=== PATIENT | female | born 1965 | race American Indian/Alaskan Native ===

== ENCOUNTER 2018-02-05 14:41 | Observation (INO) | payer BC ==
--- NOTE | 2018-02-05 15:46 | ED PDOC ---
Arrival/HPI <Reyna Manuel - Last Filed: 02/05/18 19:19> - General Historian: Patient <Moiz London - Last Filed: 02/05/18 19:38> - General Time Seen by Provider: 02/05/18 15:43 - History of Present Illness Narrative History of Present Illness (Text): 02/05/18 15:43 52 y/o female, no pmh, nkda, doesn't wear contacts and no eye surgical history, c/o rt. eye blurry vision x 3 days with an episode of headache yesterday with no fall or trauma. Pt. stated that she had rt. eye blurry vision about 3 days ago while driving, acute onset, no pain, no curtain falling down, no slurring speech/numbness/tingling, no palpitation or chest pain, been having right eye blurry vision change for the past 3 days. Pt. stated that she had an episode of short episode of headache yesterday, no chest pain or shortness of breath, no numbness or tingling, no palpitation, no night sweat, no dizziness, no dysphagia, no other medical or psychological complaints. Pt. has no headache today, only complaining about rt. eye blurry vision. (Moiz London) Past Medical History - Provider Review Nursing Documentation Reviewed: Yes <Moiz London - Last Filed: 02/05/18 19:38> Family/Social History - Physician Review Nursing Documentation Reviewed: Yes Family/Social History: Unknown Family HX <Moiz London - Last Filed: 02/05/18 19:38> Allergies/Home Meds <Reyna Manuel - Last Filed: 02/05/18 19:19> <Moiz London - Last Filed: 02/05/18 19:38> Allergies/Adverse Reactions: Allergies No Known Allergies Allergy (Verified 02/05/18 15:47) Review of Systems - Review of Systems Constitutional: absent: Fatigue, Fevers Eyes: Vision Changes ENT: absent: Hearing Changes Respiratory: absent: SOB, Cough Cardiovascular: absent: Chest Pain Gastrointestinal: absent: Abdominal Pain, Nausea, Vomiting Musculoskeletal: absent: Arthralgias, Back Pain Skin: absent: Rash, Pruritis, Skin Lesions Neurological: Headache. absent: Dizziness, Focal Weakness Endocrine: absent: Diaphoresis Psychiatric: absent: Anxiety, Depression, Suicidal Ideation <Moiz London Q - Last Filed: 02/05/18 19:38> Physical Exam Vital Signs Reviewed: Yes Temperature: Afebrile Pulse: Regular Respiratory Rate: Normal Appearance: Positive for: Well-Appearing, Non-Toxic, Comfortable Pain Distress: None Mental Status: Positive for: Alert and Oriented X 3 - Systems Exam Head: Present: Atraumatic, Normocephalic, Other (no temporal artery tenderness, no jaw claudication. ). No: Tenderness, Contusion, Swelling, Ecchymosis, Abrasion, Laceration Pupils: Present: PERRL, Other (Eyes: rt. eye w/o correction 20/400 vs. left eye w/o correction 20/25, bilateral vision w/correction 20/70, rt. eye intraocular pressure 18 vs. lt. eye intraocular pressure 18 as well, FREOM without limitation, no nystagms, no papilledema, unable to see the eye chart when held closed to her 4-12 inches) Extroacular Muscles: Present: EOMI Conjunctiva: Present: Normal Ears: Present: NORMAL TM, Normal Canal. No: Erythema Mouth: Present: Moist Mucous Membranes Pharnyx: No: ERYTHEMA, EXUDATE, TONSILS ENLARGED Nose (External): Present: Atraumatic. No: Abrasion, Contusion, Laceration Nose (Internal): Present: Normal Inspection, No Active Bleeding. No: Rhinorrhea , Septal Hematoma, Epistaxis Neck: Present: Normal Range of Motion, Trachea Midline. No: MIDLINE TENDERNESS , Paraspinal Tenderness, Lymphadenopathy Respiratory/Chest: Present: Clear to Auscultation, Good Air Exchange. No: Respiratory Distress, Accessory Muscle Use Cardiovascular: Present: Regular Rate and Rhythm, Normal S1, S2. No: Murmurs Abdomen: No: Tenderness, Distention, Peritoneal Signs Back: Present: Normal Inspection Upper Extremity: Present: Normal Inspection. No: Cyanosis, Edema Lower Extremity: Present: Normal Inspection. No: Edema Neurological: Present: GCS=15, CN II-XII Intact, Speech Normal, Motor Func Grossly Intact, Gait Normal, Memory Normal, Other (no drift, normal finger to nose test, normal heel to mckeon test. ) Skin: Present: Warm, Dry, Normal Color. No: Rashes Psychiatric: Present: Alert, Oriented x 3, Normal Insight, Normal Concentration <Moiz London - Last Filed: 02/05/18 19:38> Vital Signs Temp Pulse Resp BP Pulse Ox 02/05/18 17:32 84 18 126/91 H 100 02/05/18 16:03 98.4 F 88 18 145/97 H 97 Medical Decision Making <MarcydeloresReyna Anika - Last Filed: 02/05/18 19:19> - Lab Interpretations I have reviewed the lab results: Yes - RAD Interpretation Customer Service Agent: Radiologist - EKG Interpretation Interpreted by ED Physician: Yes Type: 12 lead EKG Comparison: Com.w/previous EKG <Moiz London - Last Filed: 02/05/18 19:38> ED Course and Treatment: 02/05/18 19:[address] Lilly, who is aware and agrees with emergency department management plan in requesting to admit patient to telemetry for further observation and biomedical instrument technician was consulted for evaluation. Patient Seen With Resident: In agreement with resident note which contains more details about the patient. Patient was seen and evaluated with resident. Came up with plan and treatment together. (Reyna Manuel) 02/05/18 15:50 Differential: ICH vs. Ischemia vs. Intracranial Tumor vs. retinal vessel occlusion -Labs/ua -CT head -IVF -Client Resource Specialist -will contact opthalmologist once CT head resulted. -Observe and reassess 02/05/18 17:59 -NIHH is One -Urine hcg is negative -EKG: Sinus Tachycardia @ 101 BPM, no ST elevation or depression, no T wave inversion -CT head: No acute intracranial abnormalities. No significant findings to account for the clinical presentation. -Chest xray show: no active disease -Labs show no acute findings except K+ 5.4 (kayexalate 15gm po ordered, ekg show no tall T waves), Lactate dehydrogenase 1177 (non-specific) -Cardiac enzyme is negative -UA show +leukocyte, +wbc, +yeast, diflucan 150mg po once and rocephine 1gm IV ordered -Paging opthalmologist oncall Dr. Carter for consult -Aspirin 325mg po ordered 02/05/18 18:40 -I spoke to DR. Carter about this case, no emergent intervention indicated at this time, will consult on this case -Paging medicine oncall for admission about this case for admission -Case discussed with Dr. Manuel, she agreed on the plan of care. -I am clinically concerning about the central cause of this blurry vision including but not limited to possible ischemia changes to the [employer]. 02/05/18 19:01 -I spoke to Dr. Lilly, discussed about the case, request to add drug screen/pt/ ptt, agreed to admit to his service and request to call his resident, paged the resident already. Dr. Manuel also spoke to Dr. lilly as well about this case. 02/05/18 19:38 -I spoke to the biomedical instrument technician, DR. Lisandro Chambers, discussed about the case/ labs/radiology result, agreed on following up the pending labs/radiology result. (Moiz London) - Lab Interpretations Lab Results: 02/05/18 16:50 02/05/18 16:50 Lab Results 02/05/18 16:50: WBC 8.9, RBC 5.04, Hgb 13.0, Hct 40.5, MCV 80.4, MCH 25.8, MCHC 32.1, RDW 15.7 H, Plt Count 270, MPV 8.9, Gran % 57.0, Lymph % (Auto) 36.3 H, [place] % (Auto) 5.6, Eos % (Auto) 0.9 L, Baso % (Auto) 0.2, Gran # 5.06, Lymph # ( Auto) 3.2, [place] # (Auto) 0.5, Eos # (Auto) 0.1, Baso # (Auto) 0.02 02/05/18 16:50: Sodium 142, Potassium 5.4 H, Chloride 104, Carbon Dioxide 28, Anion Gap 17, BUN 17, Creatinine 0.6 L, Est GFR ( Amer) > 60, Est GFR ( Non-Af Amer) > 60, Random Glucose 95, Calcium 9.3, Magnesium 2.0, Total Bilirubin 1.4 H, AST 67 H, ALT 40, Alkaline Phosphatase 92, Lactate Dehydrogenase 1177 H, Total Creatine Kinase 148, Troponin I < 0.01, Total Protein 8.9 H, Albumin 4.7, Globulin 4.2, Albumin/Globulin Ratio 1.1 02/05/18 16:20: Urine Color Yellow, Urine Appearance Clear, Urine pH 6.0, Ur Specific [place] 1.025, Urine Protein Trace H, Urine Glucose (UA) Negative, Urine Ketones Negative, Urine Blood Trace-intact H, Urine Nitrate Negative, Urine Bilirubin Negative, Urine Urobilinogen 0.2, Ur Leukocyte Esterase Trace H , Urine RBC 2 - 5, Urine WBC 5 - 10, Ur Epithelial Cells 6 - 8, Amorphous Sediment Few, Urine Bacteria Many, Urine Other Uyeast - RAD Interpretation Radiology Orders: 02/05/18 15:56 HEAD W/O CONTRAST [CT] Stat 02/05/18 16:00 CHEST PORTABLE [RAD] Stat Chest xray: HISTORY: medical clearance COMPARISON: No prior. FINDINGS: LUNGS: No active pulmonary disease. PLEURA: No significant pleural effusion identified, no pneumothorax apparent. CARDIOVASCULAR: No radiographic findings to suggest acute or significant cardiovascular disease. OSSEOUS STRUCTURES: No significant abnormalities. VISUALIZED UPPER ABDOMEN: Normal. OTHER FINDINGS: None. IMPRESSION: No active disease. CT head: FINDINGS: HEMORRHAGE: No intracranial hemorrhage. BRAIN: No mass effect or edema. No atrophy or chronic microvascular ischemic changes. VENTRICLES: Unremarkable. No hydrocephalus. CALVARIUM: Unremarkable. PARANASAL SINUSES: Unremarkable as visualized. No significant inflammatory changes. MASTOID AIR CELLS: Unremarkable as visualized. No inflammatory changes. OTHER FINDINGS: None. IMPRESSION: No acute intracranial abnormalities. No significant findings to account for the clinical presentation. (Moiz London) - EKG Interpretation EKG Interpretation (Text): 02/05/18 16:24 Sinus Tachycardia @ 101 BPM, no ST elevation or depression, no T wave inversion (Moiz London) - Medication Orders Current Medication Orders: Discontinued Medications Aspirin (Aspirin) 325 mg PO STAT STA Stop: 02/05/18 17:54 Last Admin: 02/05/18 19:15 Dose: 325 mg Fluconazole (Diflucan) 150 mg PO STAT STA PRN Reason: Protocol Stop: 02/05/18 17:02 Last Admin: 02/05/18 17:51 Dose: 150 mg Ceftriaxone Sodium (Rocephin 1 Gram Ivpb) 1 gm in 100 mls @ 200 mls/hr IVPB STAT STA PRN Reason: Protocol Stop: 02/05/18 17:30 Last Admin: 02/05/18 17:51 Dose: 200 mls/hr eMAR Start Stop Document 02/05/18 17:51 [place] (Rec: 02/05/18 17:51 [place] [id number] Intravenous Solution Start Date 02/05/18 Start Time 17:51 Sodium Polystyrene Sulfonate (Kayexalate Susp) 15 gm PO STAT STA Stop: 02/05/18 17:56 Last Admin: 02/05/18 19:15 Dose: 15 gm NIHSS Scale ([place]) Time Performed: 18:00 - How Severe is the Stoke Baseline Level of Consciousness: 0=Alert LOC to Questions: 0=Both comments correct LOC to commands: 0=Obeys both correctly Best Gaze: 0=Normal Visual: 1=Partial hemianopia Facial: 0=Normal Motor Arm - Left: 0=No drift Motor Arm - Right: 0=No drift Motor Leg - Left: 0=No drift Motor Leg - Right: 0=No drift Limb Ataxia: 0=Absent Sensory: 0=Normal Best Language: 0=No aphasia Dysarthia: 0=Normal articulation Extinction & Inattention (Neglect): 0=Normal, no object Score: 1 Risk Level: Minor Stroke Risk <Moiz London Q - Last Filed: 02/05/18 19:38> rTPA Inclusion/Exclusion - Refusal of Treatment Patient Refused Treatment: No - Inclusion Criteria for Altepase Patient is 18 years or Older: Yes The Clinical Diagnosis of Ischemic Stroke That is Causing a Potentially Disabling Neurological Deficit: No Time of Onset is Well Established to be Less Than 270 Minute Before Treatment Would Begin: No Risk/Benefit Discussed With Patient/Family Member Present: Yes - Exclusion Criteria for Altepase Uncontrolled Hypertension at Time of Treatment (Systolic BP above 185 or Diastolic BP above 110 mmHg): No Active Internal Bleeding: No Known Bleeding Diathesis Including but Not Limited to: Platelets Below 100,000/ mm,PTT Above 40 sec After Heparin Use, Current Use of Oral Anitcoagulant With INR Greater Than 1.7 or PT Greater Than 15 secs: No Evidence of an Intracranial Hemorrhage: No Evidence of Major Acute Infarct With Signs Greater Than 1/3 MCA Territory: No Suspicion of Subarachnoid Hemorrhage on Pretreatment Evaluation Even if CT Head Negative For Hemorrhage: No - Warning to TPA With Conditions Following Conditions Weighed Against Anticipated Benefit: Yes Condition: Stroke Serevity Too Mild <Moiz London - Last Filed: 02/05/18 19:38> - PA / DRIVING SCHOOL INSTRUCTOR / Resident Statement / has reviewed & agrees with the documentation as recorded. / has examined the patient and agrees with the treatment plan. - Scribe Statement The provider has reviewed the documentation as recorded by the Scribe <Reyna Manuel - Last Filed: 02/05/18 19:19> - PA / DRIVING SCHOOL INSTRUCTOR / Resident Statement / has reviewed & agrees with the documentation as recorded. <Moiz London - Last Filed: 02/05/18 19:38> - Scribe Statement Laverne Egan All medical record entries made by the Scribe were at my direction and personally dictated by me. I have reviewed the chart and agree that the record accurately reflects my personal performance of the history, physical exam, medical decision making, and the department course for this patient. I have also personally directed, reviewed, and agree with the discharge instructions and disposition. (Reyna Manuel) Disposition/Present on Arrival <Reyna Manuel - Last Filed: 02/05/18 19:19> - Present on Arrival Any Indicators Present on Arrival: No History of DVT/PE: No History of Uncontrolled Diabetes: No Urinary Catheter: No History of Decub. Ulcer: No - Disposition Have Diagnosis and Disposition been Completed?: Yes Disposition Time: 18:01 Patient Plan: Admission, Observation, Telemetry <Moiz London - Last Filed: 02/05/18 19:38> - Disposition Diagnosis: Candidiasis, UTI (urinary tract infection), Blurry vision, right eye, Hyperkalemia, Headache Disposition: HOSPITALIZED Patient Problems: Current Active Problems Problem Status Onset Candidiasis Acute UTI (urinary tract infection) Acute Blurry vision, right eye Acute Hyperkalemia Acute Headache Acute Condition: STABLE
[2018-02-05 16:40] LABS: URINE BILIRUBIN NEGATIVE (NEGATIVE); URINE BLOOD TRACE-INTACT (NEGATIVE); URINE GLUCOSE (UA) NEGATIVE (NEGATIVE); URINE LEUKOCYTE ESTERASE TRACE Leu/uL (NEGATIVE); URINE PROTEIN TRACE mg/dL (<30 mg/dL); URINE UROBILINOGEN 0.2 E.U./dL (<1 E.U./dL)
[2018-02-05 16:49] LABS: URINE APPEARANCE CLEAR (CLEAR); URINE COLOR YELLOW (YELLOW)
[2018-02-05 17:00] LABS: URINE AMORPHOUS SEDIMENT FEW; URINE BACTERIA MANY (NEG)
[2018-02-05] MEDS ORDERED: cefTRIAXone 1 gm 1 GM/100 ML BAG IVPB STA (17:01)
[2018-02-05 17:17] LABS: BASO # 0.02 K/mm3 (0.0-2.0); BASO % 0.2 % (0.0-3.0); EOS # 0.1 (0.0-0.7); EOS % 0.9 % (1.5-5.0); GRAN # 5.06 (1.4-6.5); LYMPH # 3.2 (1.2-3.4); LYMPH % 36.3 % (22.0-35.0); MEAN CELL VOLUME 80.4 fl (80.0-105.0); MEAN CORPUSCULAR HEMOGLOBIN 25.8 pg (25.0-35.0); MEAN CORPUSCULAR HGB CONC 32.1 g/dl (31.0-37.0); MEAN PLATELET VOLUME 8.9 fl (7.0-11.0); MONO # 0.5 (0.1-0.6); MONO % 5.6 % (1.0-6.0); RBC 5.04 10^6/uL (3.5-6.1); RED CELL DISTRIBUTION WIDTH 15.7 % (11.5-14.5); WHITE BLOOD COUNT 8.9 10^3/ul (4.5-11.0)
[2018-02-05 17:21] LABS: CALCIUM 9.3 mg/dL (8.4-10.5); GFR AFRICAN-AMERICAN > 60; GFR NON-AFRICAN AMERICAN > 60
[2018-02-05 17:24] LABS: ALB/GLOB RATIO 1.1 (1.1-1.8); ALBUMIN 4.7 g/dL (3.0-4.8); ALT/SGPT 40 U/L (7-56); AST/SGOT 67 U/L (14-36); BLOOD UREA NITROGEN 17 mg/dL (7-21)
[2018-02-05 17:35] LABS: TROPONIN I < 0.01 ng/mL
--- NOTE | 2018-02-05 17:46 | RAD ---
Date of service: 02/05/2018 HISTORY: medical clearance COMPARISON: No prior. FINDINGS: LUNGS: No active pulmonary disease. PLEURA: No significant pleural effusion identified, no pneumothorax apparent. CARDIOVASCULAR: No radiographic findings to suggest acute or significant cardiovascular disease. OSSEOUS STRUCTURES: No significant abnormalities. VISUALIZED UPPER ABDOMEN: Normal. OTHER FINDINGS: None. IMPRESSION: No active disease.
--- NOTE | 2018-02-05 17:48 | CT ---
Date of service: 02/05/2018 PROCEDURE: CT HEAD WITHOUT CONTRAST. HISTORY: rt. eye blurry vision, vision change x 3 days. COMPARISON: None available. TECHNIQUE: Axial computed tomography images were obtained through the head/brain without intravenous contrast. Coronal and sagittal reconstructed images. Radiation dose: Total exam DLP = 836.55 mGy-cm. This CT exam was performed using one or more of the following dose reduction techniques: Automated exposure control, adjustment of the mA and/or kV according to patient size, and/or use of iterative reconstruction technique. FINDINGS: HEMORRHAGE: No intracranial hemorrhage. BRAIN: No mass effect or edema. No atrophy or chronic microvascular ischemic changes. VENTRICLES: Unremarkable. No hydrocephalus. CALVARIUM: Unremarkable. PARANASAL SINUSES: Unremarkable as visualized. No significant inflammatory changes. MASTOID AIR CELLS: Unremarkable as visualized. No inflammatory changes. OTHER FINDINGS: None. IMPRESSION: No acute intracranial abnormalities. No significant findings to account for the clinical presentation.
[2018-02-05] MEDS ORDERED: Sod Polystyrene Sulf 15 gm/60 ml Susp PO STA (17:55)
--- NOTE | 2018-02-05 19:09 | CARD ---
APPROVED REPORT Date of service: 02/05/2018 EKG Measurement Heart [id number] OR [id number] <Conclusion> Sinus tachycardia Possible Left atrial enlargement Left ventricular hypertrophy Abnormal ECG
[2018-02-05 19:40] LABS: INR 1.03; PARTIAL THROMBOPLASTIN TIME 28.7 Seconds (25.1-36.5); PROTHROMBIN TIME 11.7 SECONDS (9.4-12.5)
--- NOTE | 2018-02-05 21:15 | CP.PCM.HP ---
<Ahmet Castanon - Last Filed: 02/05/18 21:24> History of Present Illness - History of Present Illness History of Present Illness: Ahmet Castanon D.O PGY-1, H & P note for Dr. Lentz CC: Right blurry vision HPI: Patient is a 52 yo female with no PMH presenting with blurry vision of the right eye. Patient states that the blurry vision started 3 days ago, she was not doing anything at that time. She states that the blurry vision is only in the right eye. She denies loss of vision, loss of visual becerra, trauma to the eye, contact lens use, or previous eye surgeries. Patient has been using Visine eye drops but did not help with the blurry vision. Patient denies headaches, dizziness, muscle weakness, dysarthria, chest pain, SOB, abdominal pain, or urinary symptoms. Denies fever, chills, chest pain, constipation, and urinary symptoms 12 point ROS negative except as indicated in HPI Past medical history: denies Surgical History: thumb surgery 4 years ago Allergies: NKDA Social History: Denies alchol, tobacco, and drug use. Family History: Mother- asthma Medications:none PMD: none Present on Admission - Present on Admission Any Indicators Present on Admission: No History of DVT/PE: No History of Uncontrolled Diabetes: No Urinary Catheter: No Decubitus Ulcer Present: No Past Patient History - Past Social History Smoking Status: Never Smoked - PSYCHIATRIC Hx Substance Use: No - SURGICAL HISTORY Hx Surgeries: No - ANESTHESIA Hx Anesthesia: No Hx Anesthesia Reactions: No Hx Malignant Hyperthermia: No Meds Allergies/Adverse Reactions: Allergies Allergy/AdvReac Type Severity Reaction Status Date / Time No Known Allergies Allergy Verified 02/05/18 15:47 Physical Exam - Constitutional Appears: Well, No Acute Distress - Head Exam Head Exam: ATRAUMATIC, NORMAL INSPECTION - Eye Exam Eye Exam: EOMI, Normal appearance, PERRL. absent: Conjunctival injection, Scleral icterus Pupil Exam: NORMAL ACCOMODATION - ENT Exam ENT Exam: Mucous Membranes Moist - Neck Exam Neck exam: Positive for: Normal Inspection - Respiratory Exam Respiratory Exam: Clear to Auscultation Bilateral. absent: Rales, Rhonchi, Wheezes - Cardiovascular Exam Cardiovascular Exam: REGULAR RHYTHM, +S1, +S2. absent: Gallop, Rubs, Systolic Murmur - GI/Abdominal Exam GI & Abdominal Exam: Normal Bowel Sounds, Soft. absent: Tenderness Additional comments: Patient is obese - Extremities Exam Extremities exam: Positive for: normal inspection. Negative for: calf tenderness, pedal edema - Neurological Exam Neurological exam: Alert, CN II-XII Intact, Oriented x3 Additional comments: Muscle strength 5/5 bilaterally in upper and lower extremities. Sensation intact in all extremities. - Psychiatric Exam Psychiatric exam: Normal Affect, Normal Mood - Skin Skin Exam: Dry, Intact, Warm Results - Vital Signs Recent Vital Signs: Last Vital Signs Temp 98.3 F 02/05/18 20:43 Pulse 90 02/05/18 20:43 Resp 18 02/05/18 20:43 BP 118/72 02/05/18 20:43 Pulse Ox 100 02/05/18 20:43 - Labs Result Diagrams: 02/05/18 16:50 02/05/18 16:50 Assessment & Plan - Assessment and Plan (Free Text) Assessment: Patient is a 52 yo female with no PMH presenting with blurry vision of the right eye Plan: Blurry vision of the right eye - Need to rule out CVA - Head CT: No acute disease, no intracranial hemorrhage - Brain MRI with and without contrast ordered - Brain MRA with contrast ordered - EKG: Sinus tachycardia @ 101 - CXR: no active disease - UDS ordered - HIV and Hepatitis panel ordered - CPK, troponin, lipid panel, TSH, T3, Free T4 ordered - Urine culture pending - Neurology consulted, Dr. Boston - Cardiology consulted, Dr. Menendez - Opthalmology consulted, Dr. Carter - Started ASA 81mg - Abdomen US ordered - Carotid duplex ordered - Echocardiogram ordered - Speech and swallow eval - PT eval GI/DVT prophylaxis: Lovenox and protonix Patient case reviewed with and plan approved by attending physician, Dr. Lentz. - Date & Time Date: 02/05/18 Time: 21:24 <Trung Lentz - Last Filed: 02/08/18 17:30> Results - Vital Signs Recent Vital Signs: Last Vital Signs Temp 98.6 F 02/07/18 16:37 Pulse 76 02/07/18 16:37 Resp 20 02/07/18 16:37 BP 177/96 H 02/07/18 16:37 Pulse Ox 98 08/15/18 16:37 - Labs Result Diagrams: 02/07/18 06:00 02/07/18 06:00 Attending/Attestation - Attestation I have personally seen and examined this patient.: Yes I have fully participated in the care of the patient.: Yes I have reviewed all pertinent clinical information: Yes Notes (Text): Please see/read my dictated notes.
[2018-02-05] MEDS: Enoxaparin 30 mg Syringe SC SCH (22:40)
[2018-02-05 23:04] VITALS: RESP 20; BMI 54.9
[2018-02-06] MEDS: Pantoprazole 40 mg EC Tab PO SCH (05:16)
[2018-02-06 06:45] LABS: HDL CHOLESTEROL 43 mg/dL (29-60)
[2018-02-06 06:57] LABS: LDL CHOLESTEROL 43 mg/dL (0-129)
[2018-02-06 06:58] LABS: TROPONIN I < 0.01 ng/mL
[2018-02-06 07:31] LABS: FREE T4 1.3 ng/dL (0.78-2.19)
[2018-02-06 07:44] LABS: T3 1.39 ng/mL (0.97-1.69)
[2018-02-06 07:50] LABS: ALB/GLOB RATIO 1.1 (1.1-1.8); ALBUMIN 3.8 g/dL (3.0-4.8); ALT/SGPT 44 U/L (7-56); AST/SGOT 33 U/L (14-36); BILIRUBIN,DIRECT 0.2 mg/dL (0.0-0.4); BLOOD UREA NITROGEN 19 mg/dL (7-21); CALCIUM 8.8 mg/dL (8.4-10.5); GFR AFRICAN-AMERICAN > 60; GFR NON-AFRICAN AMERICAN > 60
[2018-02-06 09:02] LABS: BASO # 0.02 K/mm3 (0.0-2.0); BASO % 0.2 % (0.0-3.0); EOS # 0.1 (0.0-0.7); EOS % 1.5 % (1.5-5.0); GRAN # 4.99 (1.4-6.5); GRAN % 51.9 % (50.0-68.0); HEMOGLOBIN 12.3 g/dL (12.0-16.0); LYMPH # 3.9 (1.2-3.4); LYMPH % 40.6 % (22.0-35.0); MEAN CELL VOLUME 80.7 fl (80.0-105.0); MEAN CORPUSCULAR HEMOGLOBIN 25.3 pg (25.0-35.0); MEAN CORPUSCULAR HGB CONC 31.4 g/dl (31.0-37.0); MEAN PLATELET VOLUME 8.7 fl (7.0-11.0); MONO # 0.6 (0.1-0.6); MONO % 5.8 % (1.0-6.0); RBC 4.86 10^6/uL (3.5-6.1); RED CELL DISTRIBUTION WIDTH 15.8 % (11.5-14.5); WHITE BLOOD COUNT 9.6 10^3/ul (4.5-11.0)
[2018-02-06] MEDS: Enoxaparin 30 mg Syringe SC SCH ×2 (10:14→21:24)
[2018-02-06] MEDS: POLYETHYLENE GLYCOL 3350 17 GM/Dose PACKET PO SCH ×2 (10:18→21:23)
--- NOTE | 2018-02-06 10:57 | US ---
PROCEDURE: Bilateral carotid artery duplex ultrasound HISTORY: Carotid stenosis CVA PHYSICIAN(S): Carlos Arboleda MD. TECHNIQUE: Duplex sonography and color-flow Doppler were used to evaluate the carotid bifurcations and limited segments of the vertebral arteries bilaterally. FINDINGS: The exam is limited by body habitus and tortuous vessels There is mild smooth heterogeneous plaque noted at the carotid bifurcations bilaterally. The peak systolic velocity in the proximal right internal carotid artery is 108 cm/sec. This corresponds to a 20 to 39% proximal right ICA stenosis. Normal systolic velocities are noted in the proximal right external carotid artery. There is antegrade flow in the right vertebral artery. The peak systolic velocity in the proximal left internal carotid artery is 75 cm/sec. This corresponds to a 20 to 39% proximal left ICA stenosis. Normal systolic velocities are noted in the proximal left external carotid artery. There is antegrade flow in the left vertebral artery. IMPRESSION: 1. Bilateral 20-39% proximal ICA stenoses. 2. Antegrade flow in both vertebral arteries.
--- NOTE | 2018-02-06 12:14 | US ---
Date of service: 02/06/2018 HISTORY: hepatosplenomegaly COMPARISON: None. TECHNIQUE: Sonographic evaluation of the abdomen. FINDINGS: LIVER: Measures 26.8 cm. Diffusely increased echogenicity of the liver parenchyma. Consistent with fatty infiltration of the liver. Smooth contour. No mass. No biliary ductal dilatation. GALLBLADDER: Unremarkable. No gallstones. COMMON BILE DUCT: Measures 5 mm. No stones. No dilatation. PANCREAS: Unremarkable as visualized. No mass. No ductal dilatation. RIGHT KIDNEY: Measures 9.4cm. Normal echogenicity. No calculus, mass, or hydronephrosis. LEFT KIDNEY: Measures 9.4cm. Normal echogenicity. No calculus, mass, or hydronephrosis. SPLEEN: Measures 9.2 cm in length. AORTA: No focal mass. IVC: Unremarkable. OTHER FINDINGS: None. IMPRESSION: Hepatomegaly with diffuse fatty infiltration of the liver. No splenomegaly. No evidence of cholelithiasis.
--- NOTE | 2018-02-06 12:41 | CON ---
Copied To: Carlos Menendez MD Attending MD: Carlos Menendez MD DATE: 02/06/2018 CARDIOLOGY CONSULTATION HISTORY OF PRESENT ILLNESS: The patient is a 52-year-old woman who presents with blurry vision which is persistent. No chest pain, no shortness of breath. PAST MEDICAL HISTORY: The patient's past medical history is free of cardiac disease. No hypertension, no diabetes mellitus. MEDICATIONS: The patient currently is not on any medications at home. SOCIAL HISTORY: The patient denies smoking. REVIEW OF SYSTEMS: A 14-point review of systems is reviewed in detail. No cardiac symptomatology noted. PHYSICAL EXAMINATION: VITAL SIGNS: Blood pressure varies from 131 to 142, heart rates in the 70s, normal sinus rhythm. NECK: Negative JVD. LUNGS: Without rales. HEART: S1, S2. EXTREMITIES: Without edema. LABORATORY DATA AND IMAGING: EKG shows normal sinus rhythm and is unremarkable. Troponins are negative x2. Glucose is 133. The hemoglobin is 12.3. IMPRESSION: 1. Persistent blurry vision, which may be related to a neurologic or ophthalmologic issue. 2. Morbid obesity. 3. Diabetes mellitus. 4. Hypertension. PLAN: Given these findings, there is no evidence for acute cardiac issues at this time. An echocardiogram has been ordered and we will review. We will DC telemetry today. Carlos Menendez MD
[2018-02-06 13:01] LABS: HEPATITIS B SURFACE AG Negative (NEGATIVE)
[2018-02-06 13:06] LABS: HEPATITIS A IGM NEGATIVE (NEGATIVE); HEPATITIS B CORE AB NEGATIVE (NEGATIVE)
[2018-02-06 13:18] LABS: HEPATITIS C ANTIBODY NEGATIVE (NEGATIVE)
--- NOTE | 2018-02-06 17:55 | CON ---
Copied To: Winston Boston MD Attending MD: Winston Boston MD DATE: 02/06/2018 NEUROLOGY CONSULT CHIEF COMPLAINT: Right blurry vision. HISTORY OF PRESENT ILLNESS: A 52-year-old woman with no significant past medical history. Came in with acute onset of right blurry vision and transient mild double vision as well as haziness in the right eye right side of the quadrant. Left eye is intact. No headache. No change in sense of taste or smell. She said the patient has been using Visine eye drops, but did not help the blurry vision. No neck pain. Carotid Doppler showed 20-39% proximal ICA stenosis and antegrade flow in the vertebral arteries. CAT scan of the head showed acute intracranial abnormality. She had got MRI and MRA of the head with and without contrast is currently pending as well as an Ophthalmology consult. No focal motor weakness. PAST MEDICAL HISTORY: As above. SOCIAL HISTORY: No illicit drug use, smoking or EtOH abuse. REVIEW OF SYSTEMS: Fourteen-point review of systems is negative except as per the HPI. FAMILY HISTORY: Noncontributory. MEDICATIONS: Reviewed by nurses' reconciliation sheet. LABORATORY DATA: Sodium is 143, potassium 4.5, chloride 105, carbon dioxide 28, BUN of 19, creatinine 0.7, random glucose of 105, vitamin D is less than 12.8. PHYSICAL EXAMINATION: VITAL SIGNS: Temperature of 98.3, pulse rate of 83, blood pressure 115/60, respiratory rate of 20, oxygen saturation 96% by room air. GENERAL: The patient is sitting up in bed, in no acute distress. HEENT: Atraumatic, normocephalic. PERRLA. Extraocular muscles intact. NECK: Supple. No JVD, no adenopathy noted. LUNGS: Clear to auscultation. No adventitious sounds. HEART: S1, S2. Normal rate and rhythm. No murmurs, rubs or gallops. ABDOMEN: Soft, nontender and nondistended. Bowel sounds are present. EXTREMITIES: No clubbing. No cyanosis. Peripheral pulses 2+ felt bilaterally. NEUROLOGIC: The patient is alert and oriented to person, place, month and year. Speech is fluent without any errors. Cranial nerves II through XII intact. Does have some decreased visual acuity in the right eye when compared to the left and possibly has a small right visual field cut on the right quadrant. Motor exam: Moves all extremities equally. No pronator drift seen. Sensory exam: Light touch, pinprick, proprioception and vibration are intact. DTRs are 2+ throughout. Coordination: [id number]-nl-[id number] intact. No dysmetria noted. Gait is deferred for now. ASSESSMENT AND PLAN: This is a 52-year-old woman with no significant past medical history, presented with acute onset of blurry vision of the right eye, which with the carotid Doppler showing 20-39% proximal internal carotid artery stenosis, antegrade flow of the vertebral arteries. CAT scan of the head showed no acute intracranial abnormality. At this time, the right eye blurry vision is painless and unlikely optic neuritis, but we will get an MRI of the brain and MRI of the head to see if any acute intracranial abnormalities causing the symptoms versus focal retinal issue where we will need an ophthalmology consult. At this time, currently tests are pending. Continue with current present medical management. Aspirin 81 mg p.o. daily. Thank you for this consult. Winston Boston MD
[2018-02-06] MEDS: Cefepime 1gm in NS 100ml 1 GM/100 ML BAG IVPB SCH (23:05)
[2018-02-06 23:59] LABS: BARBITURATES, UR NEGATIVE (NEGATIVE); BENZODIAZEPINES, UR NEGATIVE (NEGATIVE); OPIATES, UR NEGATIVE (NEGATIVE); PHENCYCLIDINE, UR NEGATIVE (NEGATIVE)
--- NOTE | 2018-02-07 00:24 | PN ---
Copied To: Trung Lentz MD Attending MD: Trung Lentz MD DATE: 02/06/2018 SUBJECTIVE: The patient is seen in room 268, bed 1. The patient was seen lying in the bed. The patient is comfortable. Overnight nurse's notes were reviewed. The patient was seen by speech therapist. No deficits were found. PHYSICAL EXAMINATION: VITAL SIGNS: T-max is 98.3; telemetry shows sinus rhythm, heart rate 77, 83, 72; blood pressure is 131/86, 136/94, 142/92, 142/93; respirations 20, O2 sat 96%. Telemetry monitoring shows sinus rhythm. HEENT: The patient's head examination normocephalic. HEENT examination shows pink conjunctivae. Anicteric sclerae. No oropharyngeal lesion. No neck rigidity. NECK: Short and supple. The patient is morbidly obese. CHEST: Kyphosis. LUNGS: Shows questionable decreased breath sound at the bases. No rales, crackles or wheezing. CARDIOVASCULAR: S1, S2, regular rhythm. ABDOMEN: Morbidly obese. GENITALIA: Female. RECTAL: Deferred. EXTREMITY: Shows positive SCDs. MUSCULOSKELETAL: Shows a body mass index of 55. Body weight of greater than 320 pounds. NEUROLOGICAL: The patient is alert, awake, oriented x3. Cranial nerves II through XII grossly intact. Gait examination is not tested. VASCULAR: Palpable pulses. PSYCHIATRIC: Negative. DIAGNOSTICS: On 02/06/2018, WBC 9.6, hemoglobin and hematocrit 12.3 and 39.2, platelet 238. Sodium 143, potassium is down to 4.5, chloride 105, CO2 of 28, anion gap 14, BUN 19, creatinine 0.7, GFR greater than 60, glucose 105, hemoglobin A1c 5.9, which is pre diabetic. Troponin is negative. Cholesterol 174, LDL 43, HDL 43, triglyceride 128. Vitamin D is less than 12.8. Hepatitis A, B and C serologies and HIV were negative. Urine cultures are growing gram-negative rods, greater than 100,000. The patient's urine culture is growing greater than 100,000 gram-negative rods. The patient's carotid ultrasound was reviewed. The patient had an abdominal ultrasound, the results were reviewed. The patient's EKG was canceled for unknown reason. The patient was seen by neurologist and cushion padder. Their recommendations were noted. IMPRESSION AND PLAN: 1. Painless acute right type blurred vision, etiology undetermined. 2. Super morbid obesity with elevated body mass index of 55. 3. Fatty infiltration of the liver and hepatic steatosis. 4. Hepatomegaly with hepatic steatosis and fatty infiltration of the liver. 5. Questionable hypertension. 6. Bilateral 20-39% proximal internal carotid artery stenosis. 7. Hypertension. 8. Gram-negative ankit urinary tract infection with funguria. 9. Hypertensive cardiovascular disease with left ventricular hypertrophy. 10. Elevated erythrocyte sedimentation rate of 30. 11. Hypovitaminosis D. 12. Transient hyperkalemia. 13. Trace proteinuria, microscopic hematuria, pyuria, bacteriuria and funguria and gram-negative ankit urinary tract infection. 1. Right eye blurred vision and visual problems with right-sided headache, etiology undetermined. 2. Questionable transient ischemic attack. 3. Hypertension. 4. Super morbid obesity with elevated body mass index of 55. 5. Questionable history of sleep apnea with history of snoring. 6. Elevated erythrocyte sedimentation rate of 30. 7. Transient hyperkalemia. 8. Hyperglycemia. 9. Morbid obesity. 10. Trace proteinuria, microscopic hematuria, pyuria, bacteriuria and questionable funguria. 11. Questionable transient ischemic attack with right-sided blurred vision and right-sided headache. 12. Hypertensive cardiovascular disease with left ventricular hypertrophy. 13. Hepatic echogenicity versus hepatic steatosis. 14. Hepatomegaly. 15. Questionable urinary tract infection. Plan at this time, the patient is awaiting further recommendation by Neurology, Cardiology. The patient is awaiting an MRI. The patient is awaiting ophthalmology evaluation. CURRENT MEDICATIONS: Colace 100 mg three times a day; Drisdol 50,000 units weekly; Ecotrin 81 mg daily; Lipitor 40 mg daily; Lovenox 30 mg every 12 for DVT prophylaxis; cefepime 1 g IV every 12 for gram-negative ankit urinary tract infection; MiraLax 17 g twice a day; Protonix 40 mg daily; Tylenol 650 mg p.o. suppository every 6 p.r.n. for headache, mild pain and temperature greater than 99.5; Zofran 4 mg IV every 4 p.r.n. The patient has been ordered MRI of the brain with and without gadolinium, MRA of the brain without ericka, echo with Doppler pending. The patient was seen by cushion padder. Telemetry discontinued. The patient was advised out of bed ad maye. The patient was seen by physical therapist. The patient was discharged from physical therapy as being not a candidate for physical therapy. The patient's further management will be dependent upon the patient's clinical condition, hemodynamic status and as per the patient's response to therapeutic intervention. If the patient's MRI, MRA of the brain and echocardiogram is negative, the patient will be considered for discharge. The patient updated about her condition, diagnoses, test results and our recommendation. Dictated and electronically signed, not read. Trung Lentz MD MTDD
[2018-02-07] MEDS: Pantoprazole 40 mg EC Tab PO SCH (05:33)
[2018-02-07] MEDS ORDERED: Pantoprazole 40 mg EC Tab PO SCH (06:00)
[2018-02-07 06:19] LABS: BASO # 0.02 K/mm3 (0.0-2.0); BASO % 0.2 % (0.0-3.0); EOS # 0.1 (0.0-0.7); EOS % 1.1 % (1.5-5.0); GRAN # 4.22 (1.4-6.5); HEMOGLOBIN 11.6 g/dL (12.0-16.0); LYMPH # 3.2 (1.2-3.4); MEAN CELL VOLUME 81.5 fl (80.0-105.0); MEAN CORPUSCULAR HEMOGLOBIN 25.5 pg (25.0-35.0); MEAN CORPUSCULAR HGB CONC 31.3 g/dl (31.0-37.0); MEAN PLATELET VOLUME 9.1 fl (7.0-11.0); MONO # 0.5 (0.1-0.6); MONO % 6.7 % (1.0-6.0); RBC 4.55 10^6/uL (3.5-6.1); RED CELL DISTRIBUTION WIDTH 15.9 % (11.5-14.5); WHITE BLOOD COUNT 8.1 10^3/ul (4.5-11.0)
[2018-02-07 06:38] LABS: ALB/GLOB RATIO 1.1 (1.1-1.8); ALBUMIN 3.7 g/dL (3.0-4.8); ALT/SGPT 41 U/L (7-56); AST/SGOT 32 U/L (14-36); BILIRUBIN,DIRECT 0.1 mg/dL (0.0-0.4); BLOOD UREA NITROGEN 18 mg/dL (7-21); CALCIUM 8.7 mg/dL (8.4-10.5); GFR AFRICAN-AMERICAN > 60; GFR NON-AFRICAN AMERICAN > 60
--- NOTE | 2018-02-07 08:15 | HP ---
Copied To: Trung Lentz MD Attending MD: Trung Lentz MD ADDENDUM This is an addendum to the history and physical examination which was done by the forensic medical examiner. The patient seen, examined. Vital signs, diagnostic data all reviewed. The patient was examined. IMPRESSION: 1. Right eye blurred vision and visual problems with right-sided headache, etiology undetermined. 2. Questionable transient ischemic attack. 3. Hypertension. 4. Super morbid obesity with elevated body mass index of 55. 5. Questionable history of sleep apnea with history of snoring. 6. Elevated erythrocyte sedimentation rate of 30. 7. Transient hyperkalemia. 8. Hyperglycemia. 9. Morbid obesity. 10. Trace proteinuria, microscopic hematuria, pyuria, bacteriuria and questionable funguria. 11. Questionable transient ischemic attack with right-sided blurred vision and right-sided headache. 12. Hypertensive cardiovascular disease with left ventricular hypertrophy. 13. Hepatic echogenicity versus hepatic steatosis. 14. Hepatomegaly. 15. Questionable urinary tract infection. PLAN: At this time, the patient is admitted to telemetry. The patient has been ordered hemoglobin A1c, vitamin D 25-hydroxy, hepatitis and HIV panel, repeat CMP, LFT, magnesium. Repeat CBC ordered. Urine cultures ordered. Current consultation: Ophthalmology, Neurology, Cardiology. The patient is on Colace 100 three times a day. The patient was given Diflucan 150 daily, Ecotrin 81 mg p.o. daily. The patient received Kayexalate 15 g, Lipitor 40 mg daily, Lovenox 30 mg subcu every 12 hours. The patient is on MiraLax 17 g twice a day, GI prophylaxis with Protonix 40 mg daily. The patient received a dose of Rocephin 1 g in the emergency room. The patient is on Tylenol p.r.n. The patient is on Zofran 4 IV every 4 hours p.r.n. Ultrasound of the abdomen, carotid ultrasound, MRI and MRA of the brain have been ordered. Echo is ordered. Echo with Doppler ordered. Repeat EKG ordered for today. The patient's two sets of cardiac enzymes are negative. CPK is negative. The patient has been ordered out of bed. KITTY stockings, SCDs, physical therapy, occupational therapy ordered. The patient has been updated about her condition, diagnosis, treatment plan, management plan, need for further diagnostic therapeutic intervention, need for evaluation by Neurology, Cardiology, Ophthalmology. Discussed and explained to the patient. According to the ER physician surgical services assistant, the patient had an intraocular pressure checked in the emergency room which was reported normal by the ER physician surgical services assistant, Lita which is not documented in the ER notes. But he stated, he communicated those details with me. At this time, the patient is to be admitted to telemetry. The patient's further management will be dependent upon the patient's clinical condition, hemodynamic status and as per the patient's response to therapeutic intervention, as per the patient's diagnostic test results and as per recommendation by Neurology, Cardiology and Ophthalmology. This is the addendum to the history and physical examination. Please refer to the detailed history and physical examination done by the forensic medical examiner. Dictated and electronically signed, not read. Trung Lentz MD
--- NOTE | 2018-02-07 09:05 | CARD ---
APPROVED REPORT Date of service: 02/06/2018 EKG Measurement Heart [id number] <Conclusion> Age and gender specific ECG analysis Normal sinus rhythm Early repolarization
[2018-02-07] MEDS ORDERED: Gadodiamide 287 MG/ML VIAL (20ML) IV ONE (09:26)
[2018-02-07] MEDS ORDERED: Ergocalciferol 50,000 Intl Units Cap PO SCH (10:00)
[2018-02-07] MEDS: Enoxaparin 30 mg Syringe SC SCH (10:36)
[2018-02-07] MEDS: Cefepime 1gm in NS 100ml 1 GM/100 ML BAG IVPB SCH (10:36)
[2018-02-07] MEDS: POLYETHYLENE GLYCOL 3350 17 GM/Dose PACKET PO SCH (10:37)
--- NOTE | 2018-02-07 11:14 | MRI ---
Date of service: 02/07/2018 PROCEDURE: MRI BRAIN WITH AND WITHOUT CONTRAST HISTORY: rule out CVA COMPARISON: None available. TECHNIQUE: Multiplanar, multisequence MR images of the brain were obtained with and without intravenous contrast enhancement. 20 cc of Omniscan FINDINGS: HEMORRHAGE: None DWI: No evidence of an acute or early subacute infarction. BRAIN PARENCHYMA: No mass,mass effect or edema. No atrophy or chronic microvascular ischemic changes. ENHANCEMENT: No abnormal intracranial enhancement. VENTRICLES: Unremarkable. No hydrocephalus. CRANIUM: Unremarkable. ORBITS: Grossly unremarkable. PARANASAL SINUSES/MASTOIDS: Clear VASCULAR SYSTEM: Skull base flow voids intact. OTHER FINDINGS: None. IMPRESSION: Unremarkable pre and post contrast enhanced MRI of the brain.
--- NOTE | 2018-02-07 11:17 | MRI ---
Date of service: 02/07/2018 PROCEDURE: Magnetic Resonance Angiography Brain with and without contrast HISTORY: rule out CVA COMPARISON: None available. TECHNIQUE: 3D time of flight MR angiography of the intracranial arteries was performed. Rotating maximum intensity projection images were generated. 20 cc of Omniscan FINDINGS: INTERNAL CAROTID ARTERIES: Unremarkable. The skull base, petrous, cavernous and supraclinoid segments are bilaterally widely patient. ANTERIOR CEREBRAL ARTERIES: Unremarkable. A1 and A2 segments are widely patent. Smaller distal branches unremarkable, as visualized. MIDDLE CEREBRAL ARTERIES: Unremarkable. M1 and M2 segments are widely patent. Perisylvian branches grossly symmetric. POSTERIOR CIRCULATION: Basilar Artery: Unremarkable. Distal Vertebral Arteries: Unremarkable. Posterior Cerebral Arteries: Unremarkable. Posterior Inferior Cerebellar Arteries: Unremarkable. ANEURYSM/ VASCULAR MALFORMATIONS: None. OTHER FINDINGS: None. IMPRESSION: Unremarkable MR angiography of the brain.
--- NOTE | 2018-02-07 13:34 | CP.PCM.PCO ---
Physician Communication Note - Physician Communication Note Physician Communication Note: mri/mra/mrv is normal. Pt needs to see Optho. thx.
--- NOTE | 2018-02-07 13:57 | PN ---
Copied To: Carlos Menendez MD Attending MD: Carlos Menendez MD DATE: 02/07/2018 CARDIOLOGY FOLLOWUP SUBJECTIVE: The patient is comfortable in bed. Her blurred vision seems to be improved. PHYSICAL EXAMINATION: VITAL SIGNS: Blood pressure varies from 115-141 systolic. NECK: Negative JVD. LUNGS: Without rales. HEART: Reveals S1, S2. EXTREMITIES: Without edema. LABORATORY DATA: Hemoglobin is 11.6. Chemistries: BUN and creatinine are unremarkable. The echocardiogram was done, the results are pending. The brain MRI is unremarkable. IMPRESSION: 1. Hypertension. 2. Diabetes mellitus. 3. Obesity. 4. Blurred vision. PLAN: Given these findings, there are no neurologic findings so far on scans that can explain her blurred vision. Her carotid ultrasounds reveals no critical carotid disease. Awaiting echo findings. Carlos Menendez MD
[2018-02-07 16:37] VITALS: BP 177/96; PULSE 76; TEMP 98.6; O2SAT 98
--- NOTE | 2018-02-07 18:05 | CARD ---
APPROVED REPORT Date of service: 02/07/2018 EXAM: Two-dimensional and M-mode echocardiogram with Doppler and color Doppler. INDICATION R/O CVA 2D DIMENSIONS IVSd1.4 (0.7-1.1cm)LVDd4.3 (3.9-5.9cm) PWd1.4 (0.7-1.1cm)LVDs3.0 (2.5-4.0cm) FS (%) 31.4 %LVEF (%)59.6 (>50%) M-Mode DIMENSIONS Left Atrium (MM)3.10 (2.5-4.0cm)Aortic Root3.10 (2.2-3.7cm) Aortic Cusp Exc.2.10 (1.5-2.0cm) Aortic Valve AoV Peak Yyqsowtk035.0cm/Davis Peak GR.9mmHg Mitral Valve MV E Izqwfnpg57.7cm/sMV A Lvbdhpcu48.1cm/sE/A ratio0.9 TDI Lateral E' Peak V11.00cm/sE/Lateral E'5.3 Tricuspid Valve TR Peak Jppyyoxk856eo/sRAP [id number] Peak Gr.18mmHg [id number] LEFT VENTRICLE The left ventricle is normal size. There is mild concentric left ventricular hypertrophy. The left ventricular function is normal.EF-55-60% There is normal LV segmental wall motion. Transmitral Doppler flow pattern is Grade III-reversible restrictive diastolic dysfunction. No left ventricle thrombus noted on this study. There is no ventricular septal defect visualized. There is no left ventricular aneurysm. There is no mass noted in the left ventricle. RIGHT VENTRICLE The right ventricle is normal size. There is normal right ventricular wall thickness. The right ventricular systolic function is normal. ATRIA The left atrium size is normal. The right atrium size is normal. The interatrial septum is intact with no evidence for an atrial septal defect. AORTIC VALVE The aortic valve is possibly bicuspid. The aortic valve is thickened but opens well. No aortic regurgitation is present. There is no aortic valvular stenosis. There is no aortic valvular vegetation. MITRAL VALVE The mitral valve is thickened but opens well. Mitral regurgitation is trace. There is no mitral valve stenosis. There is no evidence of mitral valve prolapse. TRICUSPID VALVE The tricuspid valve leaflets are thickened , but open well. There is trace tricuspid regurgitation.RVSP-28 mmof Hg. There is no tricuspid valve stenosis. There is no tricuspid valve prolapse or vegetation. PULMONIC VALVE The pulmonic valve is borderline thickened. There is trace pulmonic valvular regurgitation. There is no pulmonic valvular stenosis. GREAT VESSELS The aortic root is normal in size. The ascending aorta is normal in size. The pulmonary artery is normal. The IVC is normal in size and collapses >50% with inspiration. PERICARDIAL EFFUSION There is no pleural effusion. There is no pericardial effusion. <Conclusion> Normal chamber Size. LVH. EF-55-60% The aortic valve is possibly bicuspid. The aortic valve is thickened but opens well. Mitral regurgitation is trace. There is trace tricuspid regurgitation.RVSP-28 mmof Hg. The IVC is normal in size and collapses >50% with inspiration. There is no pericardial effusion. No Vegetation or thrombus noted.
--- NOTE | 2018-02-08 04:35 | DS ---
Copied To: Trung Lentz MD Attending MD: Trung Lentz MD FINAL PROGRESS NOTE AND DISCHARGE SUMMARY HISTORY OF PRESENT ILLNESS: The patient was seen in room 371, bed 1. The patient is sitting up in the bed. The patient denies any right eye vision problem. Denies any syncope. Denies any loss of consciousness. Denies any chest pain. Denies shortness of breath. Denies hemoptysis, hematemesis, or melena. Overnight nurse's notes were reviewed. PHYSICAL EXAMINATION: VITAL SIGNS: T-max 98.6, 97.7; heart rate 76, 71; blood pressure 141/71, 115/60; respiration 20; O2 sat 98%. HEENT: Head, normocephalic, atraumatic. Pinkish conjunctivae. Anicteric sclerae. No oropharyngeal lesion. No neck rigidity. CHEST: Symmetrical. LUNGS: No rales, crackles or wheezing. CARDIOVASCULAR: S1, S2, regular rhythm. Questionable soft systolic murmur at left sternal border, right second intercostal space, left second intercostal space. ABDOMEN: Morbidly obese. No hepatosplenomegaly appreciable. No costovertebral angle tenderness. GENITALIA: Female. RECTAL: Examination is deferred. EXTREMITIES: No pitting edema, no calf tenderness, no Homans' sign. NEUROLOGIC: The patient is alert, awake, oriented x3. Cranial nerves II-XII intact. MUSCULOSKELETAL: Body mass index of 55. Body weight of 320 pounds. PSYCHIATRIC: Negative. DIAGNOSTICS: 02/07, WBC 8.1, hemoglobin/hematocrit 11.6/37.1, platelets 221. Sodium 142, potassium 4.1, chloride 106, CO2 28, anion gap 12, BUN 18, creatinine 0.7, GFR greater than 60, glucose 107, calcium 8.7, phosphorus 3.8, magnesium 2. LFTs are normal. Hemoglobin A1c 5.9. Vitamin D 25-hydroxy less than 12.8. Hepatitis A, B, C serologies and . Microbiology, urine cultures, Escherichia coli. Patient's MRA of the brain, MRI of the brain, ultrasound of the abdomen, carotid ultrasound reviewed. Echocardiogram results were reviewed. All above explained to the patient at length. The patient's Neurology recommendations were noted. The patient seen by Cardiology, Neurology. The patient was cleared for discharge. FINAL IMPRESSION, PLAN AND DISCHARGE DIAGNOSES: 1. Painless acute right type blurred vision (resolved). 2. Questionable hypertension. 3. Super morbid obesity with elevated body mass index of 55 and body weight of greater than 320 pounds. 4. Mild normocytic anemia. 5. Lymphocytosis, etiology undetermined. 6. Mildly elevated erythrocyte sedimentation rate of 30. 7. Hypovitaminosis D. 8. Questionable prediabetes with hemoglobin A1c of 5.9. 9. Escherichia coli urinary tract infection with proteinuria, microscopic hematuria, pyuria, bacteriuria, funguria. 10. Hepatomegaly with hepatic fatty infiltration and hepatic steatosis. 11. Bilateral 20% to 39% proximal internal carotid artery stenosis. 12. Left ventricular ejection fraction of 60%. 13. Mild concentric left ventricular hypertrophy. 14. Grade III reversible restrictive diastolic dysfunction. 15. Possible bicuspid aortic valve. 16. Thickened mitral and aortic valve. 17. Trace mitral regurgitation. 18. Trace pulmonic regurgitation. 19. Early repolarization changes. 1. Painless acute right type blurred vision, etiology undetermined. 2. Super morbid obesity with elevated body mass index of 55. 3. Fatty infiltration of the liver and hepatic steatosis. 4. Hepatomegaly with hepatic steatosis and fatty infiltration of the liver. 5. Questionable hypertension. 6. Bilateral 20-39% proximal internal carotid artery stenosis. 7. Hypertension. 8. Gram-negative ankit urinary tract infection with funguria. 9. Hypertensive cardiovascular disease with left ventricular hypertrophy. 10. Elevated erythrocyte sedimentation rate of 30. 11. Hypovitaminosis D. 12. Transient hyperkalemia. 13. Trace proteinuria, microscopic hematuria, pyuria, bacteriuria and funguria and gram-negative ankit urinary tract infection. 1. Right eye blurred vision and visual problems with right-sided headache, etiology undetermined. 2. Questionable transient ischemic attack. 3. Hypertension. 4. Super morbid obesity with elevated body mass index of 55. 5. Questionable history of sleep apnea with history of snoring. 6. Elevated erythrocyte sedimentation rate of 30. 7. Transient hyperkalemia. 8. Hyperglycemia. 9. Morbid obesity. 10. Trace proteinuria, microscopic hematuria, pyuria, bacteriuria and questionable funguria. 11. Questionable transient ischemic attack with right-sided blurred vision and right-sided headache. 12. Hypertensive cardiovascular disease with left ventricular hypertrophy. 13. Hepatic echogenicity versus hepatic steatosis. 14. Hepatomegaly. 15. Questionable urinary tract infection. PLAN: At this time, the patient was cleared for discharge by all subspecialty. Discharge medications, Ecotrin 81 mg daily, Vantin 200 mg twice a day for 10 days, Drisdol 50,000 Units weekly. The patient was discharged home. The patient was advised to follow up with Dr. Lentz within 1 week. Follow up with Ophthalmology within 1 week. The patient was given discharge meds as per ambulatory orders plus new prescription. Copy of the diet was given to the patient upon discharge. During this hospitalization, the patient was extensively explained about the details of his medical condition, diagnosis, test results, specific details and recommendations were given about outpatient followup, need for outpatient Ophthalmology evaluation as soon as possible. This was discussed and explained to the patient at length, which she acknowledged understood. The patient was also advised outpatient followup in the office in 1 week. The patient understood and acknowledged all the above details. The patient understands and acknowledges her diagnoses. The patient was strictly advised about weight loss and possibly seeking bariatric surgery consultation outpatient. Dictated and electronically signed, not read. Trung Lentz MD EMMA
== END 2018-02-07 18:37 | disposition home or self-care (01) ==
LOC: ED 14:41 → ERH 19:04 → 2RNO 20:59 → 3RSO 02-06 14:33
PROVIDERS: ADMIT Internal Medicine; ATTEND Internal Medicine
DX: H53.8 Other visual disturbances (principal); I11.9 Hypertensive heart disease without heart failure; E66.01 Morbid (severe) obesity due to excess calories; Z68.43 Body mass index [BMI] 50.0-59.9, adult; D64.9 Anemia, unspecified; D72.820 Lymphocytosis (symptomatic); R70.0 Elevated erythrocyte sedimentation rate; E55.9 Vitamin D deficiency, unspecified; R73.03 Prediabetes; B37.9 Candidiasis, unspecified; N39.0 Urinary tract infection, site not specified; E87.5 Hyperkalemia; I65.29 Occlusion and stenosis of unspecified carotid artery; K76.0 Fatty (change of) liver, not elsewhere classified; R31.29 Other microscopic hematuria; B96.20 Unspecified Escherichia coli [E. coli] as the cause of diseases classified elsewhere; Z79.82 Long term (current) use of aspirin; Z82.5 Family history of asthma and other chronic lower respiratory diseases; I08.8 Other rheumatic multiple valve diseases
CPT/HCPCS: 36415; 70450; 70545; 70553; 71045; 76700; 80053; 80061; 80074; 81001; 82248; 82306; 82550; 82948; 83036; 83615; 83735; 84100; 84439; 84443; 84480; 84484; 85025; 85610; 85651; 85730; 87086; 87181; 87389; 93005; 93306; 93880; 96365; 96366; 96372; 96375; 97116; 97161; 99285; A9579; G0378; G0480; G8978; G8979; G8980; J0692; J0696; J1650

== ENCOUNTER 2018-08-21 11:06 | Observation (INO) | payer BC ==
[2018-08-21] MEDS ORDERED: Albuterol-Ipratrop 3 mg / 0.5 (3 ml) UD IH SCH (11:30)
--- NOTE | 2018-08-21 11:30 | ED PDOC ---
Arrival/HPI - General Chief Complaint: Shortness Of Breath Historian: Patient - History of Present Illness Narrative History of Present Illness (Text): 08/21/18 11:25 53 y/o female, pmh including hld/asthma, post menopausal, nkda, c/o coughing and wheezing/runny nose x 2 days. Pt. stated that she has chronic asthma, on symbicort and albuterol MDI with nebulizer, been having a cold for the past 2 days with runny nose and coughing, admits sob, causing flared up of her asthma, no night sweat, no chest pain, no palpitation, no numbness or tingling, no change in vision, no rash, no other medical or psychological complaints. Pt. has no pmd. Past Medical History - Provider Review Nursing Documentation Reviewed: Yes - Cardiac Hx Cardiac Disorders: No - Pulmonary Hx Respiratory Disorders: Yes Hx Asthma: Yes Hx Bronchitis: Yes - Neurological Hx Neurological Disorder: Yes Hx Dizziness: Yes - HEENT Hx HEENT Disorder: No - Renal Hx Renal Disorder: No - Endocrine/Metabolic Hx Endocrine Disorders: No - Hematological/Oncological Hx Blood Disorders: Yes Hx Anemia: Yes - Integumentary Hx Dermatological Disorder: No - Musculoskeletal/Rheumatological Hx Musculoskeletal Disorders: Yes Hx Osteoarthritis: Yes - Gastrointestinal Hx Gastrointestinal Disorders: Yes Hx Gastroesophageal Reflux: Yes - Genitourinary/Gynecological Hx Genitourinary Disorders: Yes Hx Urinary Tract Infection: Yes - Psychiatric Hx Psychophysiologic Disorder: No Hx Substance Use: No - Anesthesia Hx Anesthesia: No Hx Anesthesia Reactions: No Hx Malignant Hyperthermia: No Family/Social History - Physician Review Nursing Documentation Reviewed: Yes Family/Social History: Unknown Family HX Smoking Status: Never Smoked Hx Alcohol Use: No Hx Substance Use: No Allergies/Home Meds Allergies/Adverse Reactions: Allergies No Known Allergies Allergy (Verified 08/21/18 11:09) Home Medications: Home Meds Medication Instructions Recorded Confirmed Albuterol 0.083% [Albuterol 0.083% 2.5 mg NEB Q6 PRN 08/21/18 08/21/18 Inhal Viki (2.5 mg/3 ml) UD] Budesonide/Formoterol Fumarate 1 puff NEB DAILY 08/21/18 08/21/18 [Symbicort 80-4.5 Mcg Inhaler] Review of Systems - Review of Systems Constitutional: absent: Fatigue, Fevers Eyes: absent: Vision Changes ENT: Rhinorrhea. absent: Hearing Changes Respiratory: SOB, Cough, Sputum, Wheezing Cardiovascular: absent: Chest Pain Gastrointestinal: absent: Abdominal Pain, Nausea, Vomiting Skin: absent: Rash, Pruritis Neurological: absent: Headache Psychiatric: absent: Anxiety, Depression, Suicidal Ideation Physical Exam Vital Signs Reviewed: Yes Vital Signs Temp Pulse Resp BP Pulse Ox 08/21/18 11:16 98.3 F 97 H 22 158/98 H 94 L Temperature: Afebrile Blood Pressure: Hypertensive Pulse: Regular Respiratory Rate: Normal Appearance: Positive for: Well-Appearing, Non-Toxic, Comfortable Pain Distress: None Mental Status: Positive for: Alert and Oriented X 3 - Systems Exam Head: Present: Atraumatic, Normocephalic Pupils: Present: PERRL Extroacular Muscles: Present: EOMI Conjunctiva: Present: Normal Ears: Present: NORMAL TM. No: Erythema Mouth: Present: Moist Mucous Membranes Pharnyx: No: ERYTHEMA, EXUDATE, TONSILS ENLARGED Nose (External): Present: Atraumatic. No: Abrasion, Contusion, Laceration Nose (Internal): Present: Normal Inspection, No Active Bleeding, Rhinorrhea. No: Septal Hematoma, Epistaxis Neck: Present: Normal Range of Motion, Trachea Midline. No: Meningeal Signs, MIDLINE TENDERNESS, Paraspinal Tenderness, Lymphadenopathy Respiratory/Chest: Present: Wheezes, Decreased Breath Sounds, Rhonchi. No: Respiratory Distress, Accessory Muscle Use, Rales, Retracting, Tachypneic Cardiovascular: Present: Regular Rate and Rhythm, Normal S1, S2, Other (no pedal edema). No: Murmurs Abdomen: No: Tenderness, Distention, Peritoneal Signs, Rebound, Guarding Back: Present: Normal Inspection. No: CVA Tenderness, Midline Tenderness, Paraspinal Tenderness Upper Extremity: Present: Normal Inspection. No: Cyanosis, Edema Lower Extremity: Present: Normal Inspection. No: Edema Neurological: Present: GCS=15, CN II-XII Intact, Speech Normal Skin: Present: Warm, Dry, Normal Color. No: Rashes Psychiatric: Present: Alert, Oriented x 3, Normal Insight, Normal Concentration Medical Decision Making ED Course and Treatment: 08/21/18 11:30 -labs -cxr -duoneb/prednisone -observe and reassess -EKG incidentally performed by the ER staff: NSR @ 81 BPM, nonspecific ST changes on the lead I/AVL with NH depression, no T wave inversion. 08/21/18 11:33 -I spoke to Dr. Menendez and show this ekg to him whether code HEART needs to be activated or not since the patient has no chest pain. Dr. Menendez recommend troponin and he will come down to the ER to evaluate the patient, consult ordered. I discussed with Dr Barrera, evaluated the EKG, he agreed with the plan of care. 08/21/18 14:01 -Chest xray: ER wet read no active disease -Labs show no acute significant findings -Trop is negative for the 1st set -UA ordered and no result at this time. -Bedside sonogram performed by me and show pericardial effusion. Pt. feels better with lung is clear to auscultate with no wheezing/crackles/rhonchis after the nebulizer treatment. -Pt. will need serial troponin since her HEART score is moderate with multiple comorbidities. -Dr. Menendez, came to the bedside, evaluated the patient, he is concerning for pericarditis but agreed to admit this patient and ER management at this time. -Pt. has no pmd, medicine customs consultant is hospitalist 08/21/18 14:11 -I spoke to the hopsitalist, recommend to call Dr. Gilbert Manning as Dr. Manning is taking the medicine customs consultant today. Paging Dr. Manning. 08/21/18 14:16 -I spoke to Dr. Manning, discussed about the case/labs/radiology result, request DR. Menendez and Dr. Drew on the consult. Consults ordered and Dr. Menendez already evaluated the patient in the ER. - RAD Interpretation Radiology Orders: 08/21/18 11:24 CHEST PORTABLE [RAD] Stat Date of service: 08/21/2018 HISTORY: cough/wheezing COMPARISON: 02/05/2018 FINDINGS: LUNGS: No active pulmonary disease. PLEURA: No significant pleural effusion identified, no pneumothorax apparent. CARDIOVASCULAR: No aortic atherosclerotic calcification present. Normal cardiac size. No pulmonary vascular congestion. OSSEOUS STRUCTURES: No significant abnormalities. VISUALIZED UPPER ABDOMEN: Normal. OTHER FINDINGS: None. IMPRESSION: No active disease. Physical Director: Radiologist - EKG Interpretation EKG Interpretation (Text): 08/21/18 11:37 NSR @ 81 BPM, nonspecific ST changes on the lead I/AVL with NH depression, no T wave inversion. Interpreted by ED Physician: Yes Type: 12 lead EKG - Medication Orders Current Medication Orders: Albuterol/Ipratropium (Duoneb 3 Mg/0.5 Mg (3 Ml) Ud) 3 ml IH Q15M RITO Stop: 08/21/18 12:01 Azithromycin (Zithromax) 500 mg PO STAT STA; Protocol Stop: 08/21/18 11:26 Prednisone (Prednisone Tab) 60 mg PO STAT ONE Stop: 08/21/18 11:25 - PA / BELT BRANDER / Resident Statement /DO has reviewed & agrees with the documentation as recorded. Disposition/Present on Arrival - Present on Arrival Any Indicators Present on Arrival: No History of DVT/PE: No History of Uncontrolled Diabetes: No Urinary Catheter: No History of Decub. Ulcer: No History Surgical Site Infection Following: None - Disposition Have Diagnosis and Disposition been Completed?: Yes Diagnosis: Abnormal EKG, SOB (shortness of breath), Asthma Disposition: HOSPITALIZED Disposition Time: 12:33 Patient Plan: Admission, Observation, Telemetry Patient Problems: Current Active Problems Problem Status Onset Abnormal EKG Acute SOB (shortness of breath) Acute Asthma Acute Condition: GUARDED Referrals: PCP,NO [Primary Care Provider] - Follow up with primary Forms: [facility] (Danish)
[2018-08-21 12:06] LABS: INR 1.04; PARTIAL THROMBOPLASTIN TIME 31.6 Seconds (26.9-38.3); PROTHROMBIN TIME 11.7 SECONDS (9.4-12.5)
[2018-08-21 12:07] LABS: BASO # 0.01 K/mm3 (0.0-2.0); BASO % 0.1 % (0.0-3.0); EOS # 0.2 (0.0-0.7); EOS % 2.6 % (1.5-5.0); HEMOGLOBIN 11.9 g/dL (12.0-16.0); LYMPH # 2.7 (1.2-3.4); LYMPH % 33.8 % (22.0-35.0); MEAN CELL VOLUME 83.1 fl (80.0-105.0); MEAN CORPUSCULAR HEMOGLOBIN 24.9 pg (25.0-35.0); MEAN PLATELET VOLUME 8.7 fl (7.0-11.0); MONO # 0.3 (0.1-0.6); MONO % 4.1 % (1.0-6.0); RBC 4.78 10^6/uL (3.5-6.1); RED CELL DISTRIBUTION WIDTH 15.4 % (11.5-14.5); WHITE BLOOD COUNT 8.1 10^3/uL (4.5-11.0)
[2018-08-21 12:09] LABS: ALB/GLOB RATIO 1.1 (1.1-1.8); ALBUMIN 4.2 g/dL (3.0-4.8); ALT/SGPT 24 U/L (7-56); AST/SGOT 29 U/L (14-36); BLOOD UREA NITROGEN 11 mg/dL (7-21); CALCIUM 9.3 mg/dL (8.4-10.5); GFR NON-AFRICAN AMERICAN > 60
[2018-08-21 12:23] LABS: TROPONIN I < 0.01 ng/mL
[2018-08-21] MEDS ORDERED: Sodium Chloride 0.9% 1,000 ML IV STA (12:52)
--- NOTE | 2018-08-21 13:23 | RAD ---
Date of service: 08/21/2018 HISTORY: cough/wheezing COMPARISON: 02/05/2018 FINDINGS: LUNGS: No active pulmonary disease. PLEURA: No significant pleural effusion identified, no pneumothorax apparent. CARDIOVASCULAR: No aortic atherosclerotic calcification present. Normal cardiac size. No pulmonary vascular congestion. OSSEOUS STRUCTURES: No significant abnormalities. VISUALIZED UPPER ABDOMEN: Normal. OTHER FINDINGS: None. IMPRESSION: No active disease.
--- NOTE | 2018-08-21 14:58 | CON ---
DATE OF CONSULTATION: 08/21/2018 CARDIOLOGY CONSULTATION HISTORY: The patient is a 53-year-old woman, who presents with symptoms consistent with upper respiratory infection. This is associated with dyspnea. PAST MEDICAL HISTORY: The patient's past medical history includes bronchospasm, for which she is on a puffer at home. The patient's past medical history includes a previous history of hypertension and borderline diabetes mellitus. She had an echocardiogram in 2018, which revealed good LV function. I was asked to see her because of an abnormal EKG. She denies chest pain, denies previous cardiac issues. 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 REVIEW OF SYSTEMS: Review of systems was negative for cardiac symptomatology other than dyspnea. PHYSICAL EXAMINATION: VITAL SIGNS: Blood pressure 123/80, the heart rate is in the 90s. NECK: Negative JVD. LUNGS: No rales noted. CARDIAC: Heart rate S1, S2. EXTREMITIES: Without edema. LABORATORY DATA: Laboratories include an EKG that shows minor concave up, ST elevations in V1 and V2, which are more consistent with early repolarization versus pericarditis. There is mild GA depression. The first troponin is negative. Glucose is 112, hemoglobin is 11.9. IMPRESSION: 1. Abnormal EKG more consistent with localized pericarditis. No evidence for acute myocardial infarction. 2. Upper respiratory infection. 3. Dyspnea. 4. History of bronchospasm. 5. Remote history of diabetes mellitus. 6. Hypertension which is stable. 7. Obesity. PLAN: Given these findings, the patient is being admitted to telemetry today. We will obtain serial troponins. An echocardiogram has been ordered. Carlos Menendez MD
--- NOTE | 2018-08-21 17:54 | CARD ---
APPROVED REPORT Date of service: 08/21/2018 EKG Measurement Heart [id number] <Conclusion> Age and gender specific ECG analysis Normal sinus rhythm Possible Left atrial enlargement Left ventricular hypertrophy ST elevation, Possible early repolarization( J point elevation) co relate clinically. Abnormal ECG
[2018-08-21] MEDS ORDERED: Albuterol-Ipratrop 3 mg / 0.5 (3 ml) UD IH PRN (18:41)
--- NOTE | 2018-08-21 21:45 | HP ---
DATE OF EXAM: 08/21/2018 HISTORY OF PRESENT ILLNESS: She is a nice young lady who is 53 years female who presents to the emergency room of coughing, wheezing, runny nose for 2 days, short of breath, and could not get her breath. She has been using Symbicort and albuterol at home, it just did not get better, started to get worse, so she came to the emergency room and feeling short of breath. PAST MEDICAL HISTORY: Including high cholesterol, asthma, and postmenopausal. She has bronchitis and asthma. She has been dizzy before. She has been anemic before. She has osteoarthritis. She has had GERD and urinary tract infections in the past. ALLERGIES: SHE HAS NO KNOWN DRUG ALLERGIES. FAMILY HISTORY: Unknown family history. SOCIAL HISTORY: Nonsmoker. No drinking. No drugs. MEDICATIONS: She takes albuterol and Symbicort. REVIEW OF SYSTEMS: No acute vision or hearing changes. No sore throat. No fever. No fatigue. There is runny nose. There is little fever. There is coughing, shortness of breath, sputum, wheezing, and lot of respiratory issues. No chest pain. No abdominal pain. No nausea, vomiting, constipation, or diarrhea. No skin issues. No rashes or ulcers. No headache. No anxiety, depression, or suicidal thoughts. PHYSICAL EXAMINATION: VITAL SIGNS: 98.3 temperature, 97 pulse, 22 respiratory rate, 158/98 blood pressure, we have to address the blood pressure, and 94 O2 sat on room air. GENERAL: She is alert and oriented x3, fairly well-appearing, nontoxic. HEENT: Head is atraumatic and normocephalic. Extraocular muscles are intact. Pupils are equal and reactive to light. Throat is moist. NECK: Supple. Throat is clear. No erythema. No cervical lymphadenopathy. HEART: Regular rate. Normal S1 and S2. LUNGS: Wheezes, decreased breath sounds. Poor inspiration, difficult to take a deep breath. ABDOMEN: Soft and morbidly obese. No guarding. No rebound. No CVA tenderness. Positive bowel sounds. EXTREMITIES: Trace edema if any. NEUROLOGIC: GCS is 15. Cranial nerves II through XII grossly intact. Normal speech. Alert and oriented x3. SKIN: Warm and dry. No apparent rashes that I could appreciate. LYMPHS: Thyroid midline. No palpable appreciable lymphadenopathy. LABORATORY DATA: She had multiple tests done. She has 8.1 white count, 11.9 hemoglobin, 39.7 hematocrit with 232 platelets and INR is 1.04. Sodium 142, potassium 4, BUN is 11, creatinine 0.6, GFR is greater than 60, sugar is 112, creatinine is 9.3, magnesium is 1.9, and total bili is 0.6. AST is 29, ALT is 24, and alk phos is 113. Troponin I is less than 0.01. Total protein is 8. Serology is negative for the flu. She had a chest x-ray that says no active disease. She has an EKG that showed normal sinus rhythm, possible left atrial enlargement, and left ventricular hypertrophy. ASSESSMENT AND PLAN: She was seen by the pediatric oncologist and was seen by lock and dam operator. She will be on aspirin, DuoNebs, and prednisone. She was given 60 in the ER, continue 30. IV fluids were stopped. She is on Zithromax. We will check her labs tomorrow with an echocardiogram pending. She will be on oxygen on observation and she is improving, so hopefully we will discharge her tomorrow after 24 hours of care for asthma, bronchitis type picture. Gilbert Manning DO
[2018-08-21 23:37] VITALS: BMI 51.5
[2018-08-22] MEDS: guaiFENesin 100 mg/5 ml Syrup UD PO PRN ×2 (01:30→09:13)
[2018-08-22 07:15] LABS: HEMOGLOBIN 10.8 g/dL (12.0-16.0); MEAN CELL VOLUME 82.5 fl (80.0-105.0); MEAN CORPUSCULAR HEMOGLOBIN 24.9 pg (25.0-35.0); MEAN CORPUSCULAR HGB CONC 30.2 g/dl (31.0-37.0); MEAN PLATELET VOLUME 8.9 fl (7.0-11.0); RBC 4.34 10^6/uL (3.5-6.1); RED CELL DISTRIBUTION WIDTH 15.6 % (11.5-14.5); WHITE BLOOD COUNT 12.4 10^3/uL (4.5-11.0)
[2018-08-22 07:30] LABS: ALB/GLOB RATIO 1.1 (1.1-1.8); ALBUMIN 3.9 g/dL (3.0-4.8); ALT/SGPT 32 U/L (7-56); AST/SGOT 44 U/L (14-36); BLOOD UREA NITROGEN 16 mg/dL (7-21); CALCIUM 8.8 mg/dL (8.4-10.5); GFR NON-AFRICAN AMERICAN > 60
[2018-08-22] MEDS ORDERED: Albuterol 0.083% Inhal Sol (2.5 mg/3 mL) UD INH PRN (08:53)
--- NOTE | 2018-08-22 08:57 | PN ---
DATE: 08/22/2018 SUBJECTIVE: The patient is chest pain free. PHYSICAL EXAMINATION: VITAL SIGNS: Blood pressure 136/79, heart rates in the 70s. NECK: Negative JVD. LUNGS: Without rales. HEART: S1, S2. EXTREMITIES: Without edema. LABORATORY DATA: Troponins are negative. Preliminary echocardiogram reveals no pericardial effusion. IMPRESSION: 1. Abnormal EKG. 2. Bronchospasm. 3. Anemia. 4. No pericardial effusion on echo. Given these findings, the patient is doing well. She can be discharged today. We will arrange for an outpatient stress test given the patient's cardiac risk factors. Carlos Menendez MD
--- NOTE | 2018-08-22 14:00 | DS ---
HISTORY OF PRESENT ILLNESS: She is doing much better. She is breathing better improved overall, she is on albuterol. She is on Symbicort, prednisone, guaifenesin and Zithromax. She was seen by Dr. Menendez, supervisor inspection department. Troponin is negative. Awaiting for pulmonary to see her. She is here for observation for 24 hours. I think she has improved well enough to be discharged her today. She also would like to go home, which is great. PHYSICAL EXAMINATION: VITAL SIGNS: 98.9 temperature, 79 pulse, 136/79 blood pressure, 18 respiratory rate, 95% O2 sat on room air. HEENT: Head is atraumatic, normocephalic. HEART: Regular rate. LUNGS: Decreased breath sounds, but they are clear. No wheezes, no rhonchi, no rales. She is breathing less labored more comfortable. Her face looks better. ABDOMEN: Soft, morbidly obese, nontender. Positive bowel sounds. No guarding or rebound. EXTREMITIES: Trace edema if any. She is walking well. LABORATORY DATA: She has 139 sodium, 3.6 potassium, BUN 16, creatinine 0.6, GFR greater than 60, sugar is 96, calcium 8.8, total bili is 0.5, AST is 44, ALT is 32, alk phos 85. Troponins were less than 0.01. Total protein 7.4. White count is 12.40, she had steroids, hemoglobin is 10.8, hematocrit 35.8, platelets of 242. INR is 1.04, is negative. Clinically, she is definitely improved. Troponins are negative. ASSESSMENT AND PLAN: The plan is to discharge her after she sees the transportation broker and we will set her up for an outpatient sleep study to rule out sleep apnea and she should follow up in my office, have the pharmacy call me, she will be on prednisone 30 for 3 days, 20 for 3 days, 10 for 3 days and she will stop. guaifenesin, azithromycin for few more days. She will go back on her Symbicort and albuterol as needed. I also discussed a low-carbohydrate diet Susan Manning DO MTDD
[2018-08-22] MEDS ORDERED: Benzocaine/Menthol (Cepacol) Lozenge MT PRN (15:04)
--- NOTE | 2018-08-22 16:35 | CON ---
DATE: 08/22/2018 PULMONARY CONSULT NOTE REFERRING PHYSICIAN: Gilbert Manning DO. REASON FOR CONSULT: Asthma and shortness of breath. 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 The patient also reports that she had a sleep study done which was positive for sleep apnea. She was supposedly placed on CPAP machine, but has not gotten a CPAP machine yet. The patient presented to emergency room complaining of cough, wheezing, runny nose, shortness of breath for about two days. The patient does have history of asthma and uses Symbicort and albuterol at home. The patient reports that symptoms did not get any better after using inhalers at home, she started to get worse, so she came to the emergency room. PAST MEDICAL HISTORY: High cholesterol, asthma, postmenopausal, bronchitis, anemia, osteoarthritis, GERD, urinary tract infections in the past and March 06 exposure. ALLERGIES: NO KNOWN ALLERGIES. FAMILY HISTORY: No cardiopulmonary disease reported. SOCIAL HISTORY: Nonsmoker. No EtOH. No illicit drug use. MEDICATIONS: Reviewed: Albuterol 2.5 mg inhalation every 6 hours p.r.n., Zithromax 250 mg daily, Robitussin 100 mg every 4 hours p.r.n., Symbicort one puff nebulizer daily, prednisone 30 mg daily. REVIEW OF SYSTEMS: No headache, rhinitis, chest pain, abdominal pain, nausea, vomiting, diarrhea or leg pain reported. The patient does report still having cough which is productive and periods of shortness of breath, but they have improved since yesterday. PHYSICAL EXAMINATION: GENERAL: No acute distress. VITAL SIGNS: Blood pressure 146/88, pulse 91, temperature 98.3 and oxygen saturation 95% on room air. HEENT: Moist mucous membranes. Mallampati score of 4. Crowded airway. NECK: Supple. No JVD. Short and thick. LUNGS: Fair airflow bilaterally, mild wheezing on the right. CARDIOVASCULAR: S1 and S2. ABDOMEN: Obese, soft and nontender. EXTREMITIES: Trace bilateral lower extremity edema. NEUROLOGIC: Awake, alert, verbal. Following commands. LABORATORY DATA: Reviewed. WBC 12.4, RBC 4.34, hemoglobin 10.8, hematocrit 35.8, and platelets 242. Sodium 139, potassium 3.6, chloride 105, carbon dioxide 31, anion gap 7, BUN 16, creatinine 0.6, GFR greater than 60, random glucose 96, calcium 8.8, total bilirubin 0.5, AST 44, ALT 32, alkaline phosphatase 85, total protein 7.4, albumin 3.9, globulin 2.5, and albumin-globulin ratio 1.1. Influenza type A and B negative. Chest x-ray showed no active disease. An EKG shows normal sinus rhythm, possible left atrial enlargement, left ventricular hypertrophy, ST elevation. IMPRESSION AND PLAN: Chronic obstructive lung disease exacerbation, anemia, diabetes mellitus, hypertension, obesity, obstructive sleep apnea syndrome. We will place this patient on inhaled bronchodilators, deep venous thrombosis prophylaxis, gastric prophylaxis. We will add Cepacol and Tessalon Perles. We placed the patient is on continuous As outpatient the patient should follow up with medical team for March 06 symptoms. We will try to get PFT and sleep study results that were done. This patient was seen and examined with Dr. Drew. Discussed assessment and plan as described above. The patient was seen and examined by Tripp Pace, nurse practitioner. Discussed assessment and plan as described above. Thank you for this consult. We will follow with you. Tripp Pace APN Jon Drew MD
[2018-08-22 19:11] VITALS: RESP 20
[2018-08-22] MEDS: Arformoterol 15 mcg/2 ml Inh Sol IH SCH (20:40)
[2018-08-22] MEDS: Acetylcysteine 20% Inhal Soln (4ml) IH SCH (20:40)
[2018-08-22] MEDS: Budesonide 0.5 mg/2 ml Inhal Susp UD IH SCH (20:40)
[2018-08-22] MEDS ORDERED: Pantoprazole 40 mg EC Tab PO SCH (22:00)
[2018-08-23 06:00] VITALS: BP 130/78; PULSE 83; TEMP 98.3; O2SAT 99
[2018-08-23] MEDS: Budesonide 0.5 mg/2 ml Inhal Susp UD IH SCH (08:03)
[2018-08-23] MEDS: Acetylcysteine 20% Inhal Soln (4ml) IH SCH (08:03)
[2018-08-23] MEDS: Arformoterol 15 mcg/2 ml Inh Sol IH SCH (08:03)
[2018-08-23] MEDS ORDERED: Enoxaparin 40 mg Syringe SC SCH (10:00)
--- NOTE | 2018-08-23 12:03 | PN ---
DATE: 08/23/2018 PULMONARY PROGRESS NOTE REFERRING PHYSICIAN: Gilbert Manning DO SUBJECTIVE: The patient is seen, lying in bed. No acute distress. No overnight events reported. The patient reports using CPAP machine for 5 hours last night, states that she still has cough, but it is a little bit improved. No headache, rhinitis, shortness of breath, chest pain, abdominal pain, nausea, vomiting, diarrhea or leg pain reported. OBJECTIVE GENERAL: No acute distress. VITAL SIGNS: Blood pressure 130/78, pulse 83, temperature 98.3 and oxygen saturation 99% on room air. HEENT: Moist mucous membranes. Mallampati score of 4. Crowded airway. NECK: Supple. No JVD. Short and thick. LUNGS: Fair airflow bilaterally. CARDIOVASCULAR: S1 and S2. ABDOMEN: Obese, soft and nontender. No distention. EXTREMITIES: Trace bilateral lower extremity edema. NEUROLOGIC: Awake, alert and verbal. Following commands. MEDICATIONS: Reviewed. Mucomyst 4 mL inhalation twice a day, albuterol 2.5 mg inhalation every 6 hours p.r.n., Brovana 15 mcg every 12 hours, Zithromax 250 mg daily, Cepacol throat lozenges every 2 hours p.r.n., Tessalon Perles 100 mg 3 times a day, Pulmicort 0.5 mg every 12 hours, Lovenox 40 mg subcutaneously daily, Robitussin 100 mg every 4 hours p.r.n., Protonix 40 mg at bedtime and prednisone 30 mg daily. LABORATORY DATA: Reviewed. No new lab since yesterday. Echocardiogram report pending. IMPRESSION AND PLAN: Chronic obstructive lung disease exacerbation, anemia, diabetes mellitus, hypertension, obesity, obstructive sleep apnea syndrome. Continue inhaled bronchodilators, gastric prophylaxis, deep venous thrombosis prophylaxis. I will continue antibiotics for total of 5 days. The patient will need continuous positive airway pressure as outpatient for sleep apnea. Need followup pulmonary function test as outpatient. Recommend the patient has physical therapy, out of bed to chair. Recommend tapering prednisone on discharge home. The patient should followup with medical team for , sleep apnea precaution and head of bed elevated at 45 degrees. This patient was seen and examined with Dr. Drew. Discussed assessment and plan as described above. This patient was seen and examined with Tripp Pace, nurse practitioner. Discussed assessment and plan as described above. Thank you for this consult and we will follow with you. Tripp Pace APN Jon Drew MD
--- NOTE | 2018-08-24 02:28 | DS ---
HOSPITAL COURSE: I discharged yesterday after icu clerk saw her at 1500 hours, which is 3 o'clock in the afternoon and nobody called me to ask about discharge or anything, since then I am very confused about this. She should have gone home yesterday, put the discharge order in. The patient was seen before 3 o'clock in the afternoon and nothing was done afterwards. I am discharging her again, very frustrating. She was here for acute asthma and on observation. Gilbert Manning DO MTDDar
== END 2018-08-23 12:33 | disposition home or self-care (01) ==
LOC: ED 11:06 → ERH 17:50 → 2RNO 22:28
PROVIDERS: ADMIT Family Medicine; ATTEND Family Medicine
DX: J44.1 Chronic obstructive pulmonary disease with (acute) exacerbation (principal); J06.9 Acute upper respiratory infection, unspecified; E11.9 Type 2 diabetes mellitus without complications; I10 Essential (primary) hypertension; R94.31 Abnormal electrocardiogram [ECG] [EKG]; D64.9 Anemia, unspecified; E78.00 Pure hypercholesterolemia, unspecified; G47.33 Obstructive sleep apnea (adult) (pediatric); Z79.51 Long term (current) use of inhaled steroids; K21.9 Gastro-esophageal reflux disease without esophagitis; E66.01 Morbid (severe) obesity due to excess calories; Z68.43 Body mass index [BMI] 50.0-59.9, adult; Z87.440 Personal history of urinary (tract) infections; R73.03 Prediabetes
CPT/HCPCS: 36415; 71045; 80053; 81025; 83735; 84484; 85025; 85027; 85610; 85730; 87804; 93005; 93306; 94640; 94660; 96360; 99285; G0378; J7030